=== PATIENT | male | born 1985 | race African-American/Black ===

== ENCOUNTER 2017-01-03 18:38 | Emergency (ER) | payer OTHER ==
[~2017-01-03] VITALS: Ht 172.7 cm; Wt 95.3 kg
[2017-01-03] MEDS ORDERED: NKM (18:52)
--- NOTE | 2017-01-03 19:24 | Emergency Room Report ---
History of Present Illness General Chief Complaint: General Complaint Source: Patient Present Illness HPI 31 YO male presents to the ED c/o pain, swelling, and erythema of the cuticle line of the right middle finger nail progressive over 2 days. denies finger pad tenderness. pt. is right hand dominant, denies trauma to the finger. denies fevers, chills or rash. Denies CP, Palpitations, LOC, AMS, dizziness, Changes in Vision, Sensation, paresthesias, or a sudden severe headache. Allergies: Coded Allergies: No Known Allergies (Unverified , 01/03/17) Patient History Past Medical History: see triage record Past Surgical History: none Pertinent Family History: none Reviewed Nursing Documentation: PMH: Agreed, PSxH: Agreed Nursing Documentation-PMH Past Medical History: No History, Except For Hx Asthma: Yes Review of Systems All Other Systems: negative except mentioned in HPI Physical Exam Vital Signs Date Time Temp Pulse Resp B/P (MAP) Pulse Ox O2 Delivery O2 Flow Rate FiO2 01/03/17 18:49 98.6 81 17 146/109 98 Room Air Sp02 EP Interpretation: reviewed, normal General Appearance: no apparent distress, alert, GCS 15, non-toxic Head: normocephalic, atraumatic Eyes: bilateral eye normal inspection, bilateral eye PERRL ENT: hearing grossly normal, normal pharynx, no angioedema, normal voice Neck: full range of motion, supple/symm/no masses Respiratory: chest non-tender, lungs clear, normal breath sounds, speaking full sentences Cardiovascular #1: regular rate, rhythm, normal capillary refill Musculoskeletal: back normal, gait/station normal, normal range of motion, non- tender Neurologic: alert, oriented x3, responsive, motor strength/tone normal, sensory intact, speech normal Skin: no rash, warm/dry, well hydrated, other - erythema, tenderness, and fluctuance palpated on the lateral cuticle of the right middle finger nail, no finger pad ttp. Procedures Incision and Drainage Incision and Drainage : Consent: Verbal Site: right middle finger nail Blade Size: 18 G needle I & D Procedure: betadine prep, sterile drapes applied Wound Location: upper extremity - right middle finger nail Wound's Depth, Shape: superficial Wound Explored: contaminated - purulent material expressed Splint Applied?: No Sling Applied?: No Patient Tolerated: Well Complications: None Medical Decision Making PA Attestation Dr. Beach is my supervising Physician whom patient management has been discussed with. Diagnostic Impression: Primary Impression: Paronychia of finger of right hand ER Course Pt. presents to the ED c/o pain, swelling, and erythema of the cuticle line of the right middle finger nail progressive over 2 days. denies finger pad tenderness. pt. is right hand dominant, denies trauma to the finger. Ddx considered but are not limited to cellulitis, abscess, paronychia, eponychia , felon, necrotizing fasciitis, insect bite. Vital signs: are WNL, pt. is afebrile H&PE are most consistent with paronychia of the right middle finger nail, no finger pad ttp. ORDERS: none required at this time, the diagnosis is clinical ED INTERVENTIONS: -Tylenol PO -I & D- Cuticle line was gently lifted using an 18 guage needle, and purulent d/ c was expressed. local anesthesia was not necessary. - Bacitracin is applied. DISCHARGE: At this time pt. is stable for d/c to home. Will provide printed patient care instructions, and any necessary prescriptions. Care plan and follow up instructions have been discussed with the patient prior to discharge. Last Vital Signs Date Time Temp Pulse Resp B/P (MAP) Pulse Ox O2 Delivery O2 Flow Rate FiO2 01/03/17 18:49 98.6 81 17 146/109 98 Room Air Disposition: HOME, SELF-CARE Condition: Stable Scripts Ibuprofen* (MOTRIN*) 600 Mg Tablet 600 MG ORAL THREE TIMES A DAY, #30 TAB 0 Refills Prov: Maria Antonia Groves 01/03/17 Clindamycin Hcl (CLINDAMYCIN HCL) 300 Mg Capsule 300 MG ORAL FOUR TIMES A DAY for 7 Days, #28 CAP Prov: Maria Antonia Groves 01/03/17 Bacitracin/Polymyxin B Sulfate (BACITRACIN-POLYMYXIN OINTMENT) 28.35 Gm Oint...g. 1 APPLIC TP BID, #28.3 GM Prov: Maria Antonia Groves 01/03/17 Patient Instructions: Paronychia Additional Instructions: Take medications as directed. Follow up with a Primary Care Provider in 3-5 days, even if your symptoms have resolved. --Please review list of primary care clinics, if you do not already have a primary care provider Return sooner to ED if new symptoms occur, or current symptoms become worse. - Please note that this Emergency Department Report was dictated using [employer] technology software, occasionally this can lead to erroneous entry secondary to interpretation by the dictation equipment. Mari aAntonia Groves Jan 03, 2017 19:24
[2017-01-03] MEDS ORDERED: IBUPROFEN600 MG ORAL (19:26)
[2017-01-03] MEDS ORDERED: CLINDAMYCIN HC300 MG ORAL (19:26)
[2017-01-03] MEDS ORDERED: BACITRACIN-P28.35 GM TP (19:26)
[2017-01-03] MEDS ORDERED: Bacitracin Oint UD TOPIC ONE (19:30)
[2017-01-03 19:45] VITALS: BP_SYST 132; BP_SYST 146; BP_DIAS 109; BP_DIAS 71
== END 2017-01-03 19:50 | disposition home or self-care (01) ==
LOC: EMR 19:50
DX: L03.011 Cellulitis of right finger (principal); J45.909 Unspecified asthma, uncomplicated
CPT/HCPCS: 10060; 99284